=== PATIENT | female | born 1965 | race Caucasian/White ===

== ENCOUNTER 2023-09-07 06:34 | Outpatient (RCR) | payer OTHER, SELFPAY | END 2023-09-07 23:59 | disposition home or self-care (01) | LOC: RPT 06:34 | PROVIDERS: ATTENDING PHYSICIAN Nurse Practitioner | DX: N39.3 Stress incontinence (female) (male) (principal); N39.41 Urge incontinence | CPT/HCPCS: 97162; 97530 ==

== ENCOUNTER 2023-10-04 13:01 | Outpatient (RCR) | payer OTHER, SELFPAY | END 2023-10-04 23:59 | disposition home or self-care (01) | LOC: RPT 13:01 | PROVIDERS: ATTENDING PHYSICIAN Nurse Practitioner | DX: N39.3 Stress incontinence (female) (male) (principal); N39.41 Urge incontinence; Z73.6 Limitation of activities due to disability | CPT/HCPCS: 97110; 97112; 97140; 97530 ==

== ENCOUNTER 2023-10-25 15:03 | Outpatient (RCR) | payer OTHER, SELFPAY | END 2023-10-25 23:59 | disposition home or self-care (01) | LOC: RPT 15:03 | PROVIDERS: ATTENDING PHYSICIAN Nurse Practitioner | DX: N39.3 Stress incontinence (female) (male) (principal); N39.41 Urge incontinence; Z73.6 Limitation of activities due to disability | CPT/HCPCS: 97112; 97530 ==

== ENCOUNTER 2023-11-08 13:06 | Outpatient (RCR) | payer OTHER, SELFPAY | END 2023-12-06 13:07 | disposition home or self-care (01) | LOC: RPT 13:06 | PROVIDERS: ATTENDING PHYSICIAN Nurse Practitioner | DX: N39.3 Stress incontinence (female) (male) (principal); N39.41 Urge incontinence; Z73.6 Limitation of activities due to disability | CPT/HCPCS: 97014; 97110; 97112; 97530 ==

== ENCOUNTER → 2023-11-29 15:32 | Outpatient (REF) | payer OTHER, SELFPAY | LOC: WDC 15:32 | PROVIDERS: ATTENDING PHYSICIAN Nurse Practitioner | DX: Z12.31 Encounter for screening mammogram for malignant neoplasm of breast (principal) | CPT/HCPCS: 77063; 77067 ==

== ENCOUNTER 2024-06-07 06:24 | Day surgery (SDC) | payer OTHER, SELFPAY | END 2024-06-07 11:30 | disposition home or self-care (01) | LOC: GI 06:24 | PROVIDERS: ATTENDING PHYSICIAN Internal Medicine Gastroenterology; FAMILY PHYSICIAN Nurse Practitioner | DX: Z12.11 Encounter for screening for malignant neoplasm of colon (principal); K51.20 Ulcerative (chronic) proctitis without complications; D12.2 Benign neoplasm of ascending colon; K57.30 Diverticulosis of large intestine without perforation or abscess without bleeding; Z86.0101 Personal history of adenomatous and serrated colon polyps; Z98.890 Other specified postprocedural states | CPT/HCPCS: 45380; 88305 ==